=== PATIENT | male | born 1930 | race Caucasian/White ===

== ENCOUNTER → 2016-09-05 | Outpatient (CLI) | payer MEDICARE, BC ==
[~2016-09-05] MED LIST: ARICEPT PO; CHLORTHALIDONE25 MG PO; DILTIAZEM ER360 M1 PO; DILTIAZEM HCL120 MG PO; FLOMAX0.4 M1 PO; GLUCOSAMINE &1 EAC1 PO; LISINOPRIL PO; LISINOPRIL20 MG PO; MULTIVITAMINS1 EAC3 PO; PATIENT'S PHARMACY
[2016-09-05 12:32] LABS: HEMATOCRIT 40.4 % (38.0-50.0); HEMOGLOBIN 13.8 gm/dL (13.0-16.0); MEAN CELL VOLUME 101.1 FL (83-96); MEAN CORPUSCULAR HEMOGLOBIN 34.5 PG (28-34); MEAN CORPUSCULAR HGB CONC 34.2 g/dL (30-36); RED CELL DISTRIBUTION WIDTH 12.9 % (11.0-15.5); WHITE BLOOD COUNT 9.7 X10e3 (4.0-10.5)
[2016-09-05 13:24] LABS: CALCIUM SERUM 9.4 mg/dL (8.4-10.2); GLOM FILT RATE Estimated 67.9 mL/min (>60); POTASSIUM 4.8 mmol/L (3.5-5.1)
== END | disposition home or self-care (01) ==
LOC: CLAB 11:45
PROVIDERS: Internal Medicine Nephrology
DX: I12.9 Hypertensive chronic kidney disease with stage 1 through stage 4 chronic kidney disease, or unspecified chronic kidney disease (principal); N18.3 Chronic kidney disease, stage 3 (moderate)
CPT/HCPCS: 36415; 80048; 85027

== ENCOUNTER → 2016-09-13 | Outpatient (CLI) | payer MEDICARE, BC ==
[2016-09-13 11:38] LABS: BUN/CREATININE RATIO 11.81; CALCIUM SERUM 9.5 mg/dL (8.4-10.2); CREATININE SERUM 1.1 mg/dL (0.6-1.4); GLOM FILT RATE Estimated 60.5 mL/min (>60); POTASSIUM 4.4 mmol/L (3.5-5.1)
== END | disposition home or self-care (01) ==
LOC: CLAB 09:51
PROVIDERS: Internal Medicine
DX: E87.1 Hypo-osmolality and hyponatremia (principal)
CPT/HCPCS: 36415; 80048

== ENCOUNTER 2016-10-13 16:34 | Emergency (ER) | payer MEDICARE, BC ==
--- NOTE | ~2016-10-13 | EKG ---
PATIENT: ABILIO NYE UNIT #: [id number] Ventricular Rate: 96 BPM Atrial Rate: 96 BPM P-R Interval: 184 ms QRS Duration: 116 ms Q-T Interval: 374 ms QTC Calculation(Bezet): 472 ms P Orinda: -13 degrees Calculated R Orinda: -57 degrees Calculated T Orinda: -12 degrees Diagnosis Line: Sinus rhythm with marked sinus arrhythmia Diagnosis Line: Right bundle branch block with repolarization Diagnosis Line: abnormality Diagnosis Line: Left anterior fascicular block Diagnosis Line: Bifascicular block Diagnosis Line: Septal infarct , age undetermined Diagnosis Line: Cannot rule out Inferior infarct (masked by Diagnosis Line: fascicular block?) , age undetermined Diagnosis Line: Abnormal ECG Diagnosis Line: Diagnosis Line: Confirmed by SCARLETT GALVEZ MD ([id number]) on 10/14/2016 Diagnosis Line: 8:03:43 PM INTERPRETING MD: LENNY VÁSQUEZ
--- NOTE | ~2016-10-13 | CR72 ---
[facility] A Service of [facility] & [facility] RADIOLOGY TEXT RESULTS PATIENT: REV ABILIO NYE LOCATION: [facility] : 30 UNIT #: [id number] AGE: [address]: Kindra Tejeda MD SEX: M ORDER DR: [id number] [facility] [address] [facility]. [place], [place] [address] [id number] E MR#: [id number] Acc #: [id number] NAME: ABILIO NYE : 1930 SEX: M STUDY DATE/TIME: 10/13/2016 17:32 UNIT: [facility] ROOM: STUDY DESCRIPTION: CR Chest Single View Portable Attending Physician: Kindra Tejeda M.D. Ordering Physician: Kindra Tejeda M.D. Primary Care Physician: Jorge L Nguyen III, M.D. MEDICAL IMAGING REPORT This report is preliminary unless electronic signature is present EXAM Portable chest. HISTORY Weakness and dizzy for 2 days. FINDINGS The cardiac size and pulmonary vascularity are normal. No airspace infiltrates or effusions. IMPRESSION No acute findings. No active disease. Dictated by... Rodrigo Myers M.D. THIS IS AN ELECTRONICALLY VERIFIED REPORT Rodrigo Myers M.D. at 10/14/2016 11:29 PM JAVIER/tianna TD: 10/14/2016 00:51 JOB #: [id number] MEDICAL IMAGING REPORT Page 1 of 1 COPY
[~2016-10-13 16:34] MED LIST changes: -CHLORTHALIDONE25 MG PO; -DILTIAZEM ER360 M1 PO; -GLUCOSAMINE &1 EAC1 PO; -LISINOPRIL PO; -MULTIVITAMINS1 EAC3 PO; -PATIENT'S PHARMACY
[2016-10-13 17:26] LABS: POC - CKMB <1.0 ng/mL (0.0-7.9); POC - TROPONIN <0.05 ng/mL (<=0.05)
[2016-10-13 17:28] LABS: BASOPHIL% 0.2 % (0-2.5); HEMATOCRIT 38.4 % (38.0-50.0); HEMOGLOBIN 13.1 gm/dL (13.0-16.0); LYMPHOCYTE# 0.2 X10e3 (1.0-3.5); LYMPHOCYTE% 2.3 % (17.0-45.0); MEAN CELL VOLUME 101.5 FL (83-96); MEAN CORPUSCULAR HEMOGLOBIN 34.7 PG (28-34); MEAN CORPUSCULAR HGB CONC 34.2 g/dL (30-36); MEAN PLATELET VOLUME 6.9 FL (6.5-11.5); MONOCYTE# 0.5 X10e3 (0-1.0); MONOCYTE% 4.5 % (3.0-12.0); NEUTROPHIL# 9.9 X10e3 (1.5-7.1); PLATELET COUNT 221 X10e3 (140-420); RED BLOOD COUNT 3.79 X10e (3.90-5.60); RED CELL DISTRIBUTION WIDTH 12.7 % (11.0-15.5); WHITE BLOOD COUNT 10.6 X10e3 (4.0-10.5)
[2016-10-13 17:33] LABS: DIFF IND NO
[2016-10-13 17:54] LABS: ALBUMIN SERUM 3.8 g/dL (3.5-5.0); BILIRUBIN, DIRECT 0.2 mg/dL (0.0-0.2); BILIRUBIN,INDIRECT 0.5 mg/dL (0.0-0.9); BILIRUBIN,TOTAL 0.7 mg/dL (0.2-2.0); CALCIUM SERUM 8.5 mg/dL (8.4-10.2); CREATININE SERUM 1.2 mg/dL (0.6-1.4); GLOM FILT RATE Estimated 54.4 mL/min (>60); PARTIAL THROMBOPLASTIN TIME 23.9 SECONDS (23.5-31.3); PROTEIN TOTAL SERUM 6.4 g/dL (6.0-8.3); PROTHROMBIN TIME (PATIENT) 10.6 SECONDS (9.6-11.5)
[2016-10-13 17:54] LABS: INFLUENZA A NEG (NEG); INFLUENZA B NEG (NEG)
[2016-10-13 18:30] LABS: URINE SOURCE CLEAN CATCH
[2016-10-13 18:45] LABS: URINE APPEARANCE CLEAR; URINE BILIRUBIN NEG (NEG); URINE BLOOD NEG (NEG); URINE COLOR DK YELLOW; URINE GLUCOSE NEG (NEG); URINE KETONE NEG (NEG); URINE LEUKOCYTE ESTERASE NEG (NEG); URINE NITRATE NEG (NEG); URINE PH 6.5 (5-8); URINE PROTEIN NEG (NEG); URINE SPECIFIC GRAVITY 1.021 (1.003-1.035)
[2016-10-13 18:48] LABS: CULTURE INDICATED? NO
[2016-10-13 19:01] LABS: POC - CKMB <1.0 ng/mL (0.0-7.9); POC - TROPONIN <0.05 ng/mL (<=0.05)
== END 2016-10-13 19:13 | disposition home or self-care (01) ==
LOC: CED 16:34
PROVIDERS: Emergency Medicine
DX: R53.81 Other malaise (principal); R53.1 Weakness; E87.1 Hypo-osmolality and hyponatremia; F17.210 Nicotine dependence, cigarettes, uncomplicated; I10 Essential (primary) hypertension; Z98.890 Other specified postprocedural states; Z79.899 Other long term (current) drug therapy
CPT/HCPCS: 36415; 71010; 80048; 80076; 81003; 82553; 83605; 84484; 85025; 85610; 85730; 87040; 87804; 93005; 96360; 99284

== ENCOUNTER 2016-11-17 11:07 | Inpatient (IN) | payer MEDICARE, BC ==
--- NOTE | ~2016-11-17 | CT4 ---
[facility] A Service of [facility] RADIOLOGY TEXT RESULTS PATIENT: REV ABILIO NYE LOCATION: [facility] 328-01 : 30 UNIT #: [id number] AGE: [address]: Saad Hernandez MD SEX: M ORDER DR: [id number] [facility] [address] [facility]. [place], [place] [address] [id number] I MR#: [id number] Acc #: [id number] NAME: ABILIO NYE : 1930 SEX: M STUDY DATE/TIME: 11/20/2016 15:00 UNIT: [address] ROOM: [facility] STUDY DESCRIPTION: CT Abd and Pelv Wo Cont Attending Physician: Heydi Estevez M.D. Ordering Physician: Heydi Estevez M.D. Primary Care Physician: Jorge L Nguyen III, M.D. MEDICAL IMAGING REPORT This report is preliminary unless electronic signature is present EXAM CT abdomen and pelvis without IV contrast COMPARISON None INDICATIONS 86-year-old male with diarrhea for 2 days and hyponatremia. Suspected colitis. FINDINGS Axial CT imaging of the abdomen and pelvis was performed without IV contrast. Coronal and sagittal reformats were constructed. Lack of IV contrast limits evaluation of adenopathy, vasculature and viscera. This CT exam was performed with one or more of the following radiation dose reduction techniques: Automatic exposure control, adjustment of mA and/or kV according to patient size, and iterative reconstruction. Moderate-sized fat-containing umbilical hernia. Multilevel moderate degenerative facet disease of the lumbar spine. Partial ankylosis of the sacroiliac joints. 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 Small posterior disc protrusions with annular calcification at L3-L4 and L5-S1. Small hiatal hernia. No acute findings in the imaged lower chest. Oral contrast reaches the distal ileum. Cystic structure seen in the left hepatic lobe measuring up to 2.2 cm. Separate suspected cyst in the right hepatic lobe. There are calcified granulomas within the liver. Gallbladder is unremarkable. Mild fatty replacement of the pancreas. Calcified splenic granulomas. Adrenal glands are within normal limits. Benign cyst versus angiomyolipoma in the right kidney measuring up to 1.5 cm. Benign cyst versus angiomyolipoma in the left kidney measuring up to 2.7 cm. There are 3 simple cysts in the superior pole of the left kidney, largest of which measures up to 3.9 cm. Exophytic simple cyst versus angiomyolipoma in the inferior pole of the left kidney STS. [facility] A Service of [facility] RADIOLOGY TEXT RESULTS PATIENT: REV ABILIO NYE LOCATION: [facility] 328-01 : 30 UNIT #: [id number] AGE: [address]: Saad Hernandez MD SEX: M ORDER DR: measuring up to 2.8 cm. No hydronephrosis or hydroureter. No renal or ureteral calculi. Urinary bladder is unremarkable. There are central prostatic calcifications, a nonspecific finding perhaps related to remote prostatitis. There is top-normal size of the prostate gland measuring up to 5 cm, transverse. There are pelvic phleboliths. There is left-colonic and sigmoid diverticulosis without evidence of acute diverticulitis. No evidence of inflammatory change of the bowel. Appendix is normal. No free fluid or pneumoperitoneum. The abdominal aorta is normal in caliber but is diffusely calcified with calcifications extending into the bilateral iliac arteries as well as the origins of the bilateral renal arteries and the celiac and superior mesenteric arteries. No adenopathy. IMPRESSION 1. No acute findings in the abdomen, pelvis or imaged lower chest. There is extensive left colonic diverticulosis without evidence of acute diverticulitis. 2. Small hiatal hernia. 3. Benign lesions seen in the kidneys and liver as described in the body of the report. 4. Multilevel posterior disc protrusion of the lumbar spine. 5. Top-normal size of the prostate gland, which has smooth contour. 6. Moderate fat-containing umbilical hernia. Dictated by... Isaiah Silva M.D. THIS IS AN ELECTRONICALLY VERIFIED REPORT Isaiah Silva M.D. at 11/28/2016 10:49 PM KRISTA/jules TD: 11/20/2016 22:45 JOB #: [id number] MEDICAL IMAGING REPORT Page 1 of 1 COPY
--- NOTE | ~2016-11-17 | CO ---
Unit #: [id number] #: [id number] Patient: REV ABILIO NYE [id number] [address] [place], [place] [address] [id number] [place] MR#: [id number] NAME: ABILIO NYE ROOM: 328 Age: 86 Sex: M Admission Date: 11/18/2016 : 1930 Attending Physician: Saad Hernandez M.D. Primary Care Physician: Jorge L Nguyen III, M.D. Consultation Date: 11/21/2016 CONSULTATION REPORT REASON FOR CONSULTATION Hyponatremia. Thank you very much for asking me to see this patient in consultation. HISTORY OF PRESENT ILLNESS Reverend Nye is an 86-year-old gentleman, who presented to the hospital with increased weakness times several days and intermittent diarrhea at home, who was noted to have a sodium of 126 upon admission and subsequently back down all the way to 120 yesterday and back up to 122 today. Because of this, I was asked to see the patient. The patient was on chlorthalidone at home, which has been discontinued since admission here. He has also had some intermittent loose stools and diarrhea and was started on Flagyl; although, C diff is pending. He is alert, but confused. He denies any chest pain or shortness of breath, nausea or vomiting. No urinary symptoms. No significant swelling. PAST MEDICAL HISTORY History of hearing defects, history of hypertension, underlying dementia. MEDICATIONS At home included Zestril, Flomax, chlorthalidone, glucosamine, multivitamin, diltiazem 360 daily. REVIEW OF SYSTEMS As mentioned in the HPI. SOCIAL HISTORY He smokes an intermittent cigar. No alcohol. ALLERGIES No known drug allergies. FAMILY HISTORY Unable to obtain. PHYSICAL EXAMINATION VITAL SIGNS: T-max 98.2, pulse 63 to 73, blood pressure 105 to 147 over 60s to 80s. HEENT: Normocephalic and atraumatic. Pupils are equal, round, and reactive to light. Extraocular muscles are intact. Hearing appears to be decreased bilaterally. Mouth is clear. No erythema. No exudate. NECK: Supple. No adenopathy. Unit #: [id number] #: [id number] Patient: REV ABILIO NYE CARDIAC: Regular rhythm without a rub. No S3 or S4. LUNGS: Clear bilaterally. No wheezes, rhonchi, or rales. ABDOMEN: Bowel sounds positive. Nontender. Soft. No masses. No hepato-organomegaly noted. EXTREMITIES: He has no lower extremity swelling. His pulses are intact in the lower extremities. JOINTS: No joint pain or joint swelling. SKIN: No rashes. NEUROLOGIC: He is alert, but confused. Able to move all extremities. : Deferred. DIAGNOSTIC STUDIES LABORATORY RESULTS: Today shows a sodium of 122, potassium 3.6, chloride 90, bicarb is 24, BUN 6, creatinine 0.7, glucose 86, TSH was 1.6. Calcium is 8.1. Cortisol level ordered for in the morning. Urine osmolality is 162. Hemoglobin is 12.6, white count 7.6, platelets 221. UA shows specific gravity of 1.07, no protein, no RBC clumps, 5-10 WBC, no bacteria. (1) ranged from 129-130, September 128-129. IMAGING STUDIES: CT scan of the abdomen showed diverticulosis, but no diverticulitis. 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 Also had some calcification of some of his abdominal vasculature including the origin of the renal arteries. ASSESSMENT AND PLAN Hyponatremia. Apparently this patient has either euvolemic versus a hypovolemic hyponatremia. Certainly, I agree with checking a cortisol level to rule out adrenal insufficiency as the cause. He does not appear to be volume overloaded. Does not appear to be in any type of heart failure and he has no proteinuria, so again I do not think it is hypovolemia. His urine osmolality is not consistent with an SIADH picture. Certainly at his level of 162, I do not think it is an SIADH. Initially, we could contribute it to the chlorthalidone, which is a thiazide diuretics, and potentially could be volume depleted as well from diarrhea. His urine specific gravity was only 1.07. I wonder if he is drinking a lot of fluids as well if he has some component of psychogenic polydipsia. I am going to put him on fluid restriction. I am going to continue his normal saline and we will check urine sodium. Await cortisol level in the morning and we will continue to follow. Again, stay off his chlorthalidone. Dictated by... Tyler Liz/kristina TD: 11/21/2016 13:08 JOB #: [id number] Unit #: [id number] #: [id number] Patient: REV TRELL NYEALD CONSULTATION REPORT Page 1 of 1 X Hero Saeed MD CONSULTATION REPORT
--- NOTE | ~2016-11-17 | DS ---
Unit #: [id number] #: [id number] Patient: REV ABILIO NYE [id number] [address] [address] [id number] I MR#: [id number] NAME: ABILIO NYE ROOM: [facility] Age: 86 Sex: M Admission Date: 11/18/2016 : 1930 Discharge Date: 11/23/2016 Attending Physician: Saad Hernandez M.D. Primary Care Physician: Jorge L Nguyen III, M.D. DISCHARGE SUMMARY DISCHARGE DIAGNOSES 1. Hyponatremia. 2. Diarrhea. 3. Dementia. HOSPITAL COURSE The patient is an 86-year-old male who presented to [facility] secondary to feeling dizzy. In the emergency department, the patient was noted to have orthostatic hypotension. As a result, he was admitted. The patient was seen by Renal given his profound hyponatremia and its failure to improve initially after some fluid. Renal agreed that the patient was likely hypovolemic in his hyponatremia with the further exacerbating factor of 25 mg of chlorthalidone taken daily. The patient did continue on fluids, and at this time his hyponatremia is much improved with a serum value of 132. The patient's diarrhea was noted to be profuse. Initially, it was treated as a possible C. difficile colitis, but studies have returned negative at this time. The patient is to be discharged after colonoscopy today and should follow up on the results of his colonoscopy with Dr. Dykes in two weeks. DISCHARGE MEDICATIONS 1. Diltiazem ER 360 mg p.o. daily. 2. Multivitamin daily. 3. Glucosamine and chondroitin 1 tab daily. 4. Zestril 20 mg p.o. b.i.d. 5. Flomax 0.4 mg p.o. daily. FOLLOWUP As mentioned above, the patient should follow up with Dr. Dykes in two weeks. Dictated by... Saad Hernandez M.D. VISHAL/boyd TD: 11/23/2016 14:50 JOB #: [id number] Unit #: [id number] #: [id number] Patient: REV ABILIO NYE DISCHARGE SUMMARY Page 1 of 1 X Saad Hernandez MD DISCHARGE SUMMARY
--- NOTE | ~2016-11-17 | CO ---
Unit #: [id number] #: [id number] Patient: REV ABILIO NYE [id number] [address] [address] [id number] I MR#: [id number] NAME: ABILIO NYE ROOM: 328 Age: 86 Sex: M Admission Date: 11/18/2016 : 1930 Attending Physician: Saad Hernandez M.D. Primary Care Physician: Jorge L Nguyen III, M.D. Consultation Date: 11/20/2016 CONSULTATION REPORT DICTATED FOR Kiko Dykes M.D. PRIMARY CARE PHYSICIAN Jorge L Nguyen M.D. REASON FOR CONSULT Diarrhea. HISTORY OF PRESENT ILLNESS The patient is a very pleasant 86-year-old male, who is also a retired it operations specialist. The patient has past medical history of hypertension and possible dementia. The patient has presented to the emergency room with complaints of weakness and dizziness for the past few days. Initial labs in the emergency room show significant hyponatremia with sodium of 126. The patient is being evaluated for diarrhea. The patient is somewhat a poor historian, but states since admission he has been having 2 to 3 loose watery bowel movements a day. He has only had one diarrhea since last evening. There is no history of nausea, vomiting, abdominal pain, anorexia, weight loss, or overt gastrointestinal blood loss in the form of hematemesis, melena, or hematochezia. The patient denies recent antibiotic use, overseas travel or recent sick contacts. PAST MEDICAL HISTORY Hypertension, possible dementia. PAST SURGICAL HISTORY Tonsillectomy, hernia repair. SOCIAL HISTORY The patient smokes cigars a couple of times a week. Denies any alcohol or illicit drug use. FAMILY HISTORY None for colon, pancreatic cancer or liver disease. ALLERGIES No known drug allergies. HOME MEDICATIONS Include multivitamins, glucosamine, Zestril, Flomax, Cardizem and chlorthalidone. REVIEW OF SYSTEMS Unit #: [id number] #: [id number] Patient: REV ABILIO NYE A 12-point review of system performed and only pertinent positive findings are described in HPI. The rest of review of system is negative. PHYSICAL EXAMINATION GENERAL: The patient is awake, alert, and oriented, in no acute distress. VITAL SIGNS: Stable with temperature of 98, blood pressure 142/78, heart rate 68, respirations 18. HEENT: There is no pallor, no scleral icterus, no lymphadenopathy. No peripheral edema. CARDIOVASCULAR: Regular rate and rhythm. LUNGS: Clear to auscultation bilaterally. ABDOMEN: Soft, nontender. Liver and spleen not palpable. Bowel sounds are normal. DIAGNOSTIC STUDIES LABORATORY RESULTS: BMP notable for sodium 123, calcium 7.8. BUN and creatinine within normal limits. CBC on admission was also within normal limits. Stool studies are pending at this time. IMAGING STUDIES: CT of abdomen and pelvis has been ordered. Results are pending at this time. ASSESSMENT 1. Diarrhea. 2. Hyponatremia, possible syndrome of inappropriate anti-diuretic hormone secretion. PLAN The patient with new onset of diarrhea, the patient's history is somewhat unreliable. Concern here would be infectious colitis versus inflammatory bowel disease, which is unlikely. We will wait for stool studies and CT results. Depending on those results, a colonoscopy may be considered. The patient and plan of care were discussed in detail with Dr. Dykes. Further recommendations to follow. Thank you very much for asking us to see this patient. We appreciate the consult. Dictated by... MATEO George/kristina TD: 11/23/2016 07:53 JOB #: [id number] CC: Jorge L Nguyen III, M.D. CONSULTATION REPORT Page 1 of 1 X X CONSULTATION REPORT
--- NOTE | ~2016-11-17 | HP ---
Unit #: [id number] #: [id number] Patient: REV ABILIO NYE [id number] [address] [address] [id number] I MR#: [id number] NAME: ABILIO NYE ROOM: 92465 Age: 86 Sex: M Admission Date: 11/17/2016 : 1930 Attending Physician: Chadwick Villalobos M.D. Primary Care Physician: Jorge L Nguyen III, M.D. HISTORY AND PHYSICAL CHIEF COMPLAINT Weak and dizzy. HISTORY OF PRESENT ILLNESS The patient is an 86-year-old male with a history of hypertension. The patient was brought to the emergency room complaining of weakness and dizziness for the last 2 days. The patient denies any shortness of breath, fever or chills. The patient also complained of diarrhea with two to three bowel movements during the daytime. The patient was found to have hyponatremia with a sodium of 126 and is being admitted for the above reasons. The patient denies any chest pain. Denies any shortness of breath, nausea or vomiting. PAST MEDICAL HISTORY 1. History of hypertension. 2. Psychiatric history. PAST SURGICAL HISTORY 1. History of tonsillectomy. 2. Hernia repair. SOCIAL HISTORY The patient smokes cigars about two times per week. Denies any illicit drug abuse. Drinks alcohol occasionally. FAMILY HISTORY Reviewed and none. ALLERGIES No known drug allergies. HOME MEDICATIONS 1. Multivitamins. 2. Glucosamine. 3. Zestril. 4. Flomax. 5. Cardizem. 6. Chlorthalidone. REVIEW OF SYSTEMS Fourteen point review of systems performed and only pertinent positive findings are described above. The remaining are negative. PHYSICAL EXAMINATION Unit #: [id number] #: [id number] Patient: REV ABILIO NYE GENERAL: The patient is lying on the bed, not in acute distress. VITALS: Temperature 98.2, pulse 99, respiratory rate 16, blood pressure 128/76, saturating 97% on room air. HEENT: Head atraumatic, normocephalic. Pupils equal, round and reactive to light and accommodation. Extraocular movements are intact. NECK: Supple. LUNGS: Clear to auscultation. HEART: Regular rate and rhythm. ABDOMEN: Soft. Positive bowel sounds. EXTREMITIES: No cyanosis or clubbing. NEUROLOGIC: Alert, awake and oriented. No gross focal motor deficits. DIAGNOSTIC STUDIES IMAGING: Chest x-ray shows stable mild cardiomegaly and tortuous aorta. The lungs are clear. There are no effusions. LABORATORY: White blood cell count 9, hemoglobin 13.9, hematocrit 41.4, platelets 244, glucose 86, troponin less than 0.05, sodium 126, potassium 3.8, chloride 91, bicarb 25, glucose 94, BUN 11, creatinine 1, AST 26, ALT 22. Urinalysis shows negative leukocyte esterase, negative nitrites. CARDIOVASCULAR: EKG shows sinus rhythm with first degree AV block and right bundle branch block and left anterior fascicular block. ASSESSMENT 1. Dizziness. 2. Hyponatremia. 3. Hypertension. PLAN Admit the patient to observation. Continue with IV fluids. Hold the chlorthalidone. Check the stool for culture. Further recommendations will follow as more lab results are available. Dictated by Tyler Vásquez TD: 11/17/2016 14:53 JOB #: [id number] HISTORY AND PHYSICAL Page 1 of 1 X CHADWICK VILLALOBOS MD X HISTORY AND PHYSICAL
--- NOTE | ~2016-11-17 | CR72 ---
[facility] A Service of [facility] & [facility] RADIOLOGY TEXT RESULTS PATIENT: REV ABILIO NYE LOCATION: [facility] [address]-85 : 30 UNIT #: [id number] AGE: [address]: CHADWICK CONTRERAS MD SEX: M ORDER DR: [id number] [facility] [address] [facility]. [place], [place] [address] [id number] MR#: [id number] #: [id number] NAME: ABILIO NYE : 1930 SEX: M STUDY DATE/TIME: 11/17/2016 11:51 UNIT: [facility] ROOM: STUDY DESCRIPTION: CR Chest Single View Portable Attending Physician: Xander Rivas M.D. Ordering Physician: Xander Rivas M.D. Primary Care Physician: Jorge L Nguyen III, M.D. MEDICAL IMAGING REPORT This report is preliminary unless electronic signature is present EXAM Chest portable 11/17/2016 1151 hours HISTORY 86-year-old man with shortness of air and dizziness for 4 days. COMPARISON 10/13/2016 FINDINGS Portable upright chest demonstrates stable mild cardiomegaly and tortuous aorta. The pulmonary vascularity is normal. The lungs are clear and there are no effusions. IMPRESSION Stable mild cardiomegaly and tortuous aorta. The lungs are clear and there are no effusions. Dictated by... Lorena Yi M.D. THIS IS AN ELECTRONICALLY VERIFIED REPORT Lorena Yi M.D. at 11/17/2016 2:31 PM RACHID/jose TD: 11/17/2016 12:58 JOB #: [id number] MEDICAL IMAGING REPORT Page 1 of 1 COPY
--- NOTE | ~2016-11-17 | EKG ---
PATIENT: ABILIO NYE UNIT #: [id number] Ventricular Rate: 76 BPM Atrial Rate: 76 BPM P-R Interval: 244 ms QRS Duration: 124 ms Q-T Interval: 394 ms QTC Calculation(Bezet): 443 ms P Gurley: -2 degrees Calculated R Gurley: -50 degrees Calculated T Gurley: -14 degrees Diagnosis Line: Sinus rhythm with 1st degree A-V block with Diagnosis Line: Blocked Premature atrial complexes Diagnosis Line: Right bundle branch block Diagnosis Line: Left anterior fascicular block Diagnosis Line: Bifascicular block Diagnosis Line: Abnormal ECG Diagnosis Line: When compared with ECG of 13-OCT-2016 17:21, Diagnosis Line: Premature atrial complexes are now Present Diagnosis Line: MS interval has increased Diagnosis Line: Criteria for Septal infarct are no longer Present Diagnosis Line: Confirmed by KAY GAMEZ MD ([id number]) on Diagnosis Line: 11/18/2016 4:01:19 PM INTERPRETING MD: BRYON
--- NOTE | ~2016-11-17 | OR ---
Unit #: [id number] #: [id number] Patient: REV ABILIO NYE [id number] [address] [address] [id number] MR#: [id number] NAME: ABILIO NYE ROOM: [facility] Date of Procedure: 11/23/2016 Admission Date: 11/18/2016 Surgeon: Kiko Dykes M.D. : 1930 Attending Physician: Saad Hernandez M.D. Primary Care Physician: Jorge L Nguyen III, M.D. OPERATIVE REPORT ATTENDING PHYSICIAN Dr. Saad Hernandez. PRIMARY CARE PHYSICIAN Jorge L Nguyen M.D. PREOPERATIVE DIAGNOSIS Diarrhea. PROCEDURES PERFORMED Colonoscopy and biopsies. POSTOPERATIVE DIAGNOSES 1. The patient had small internal hemorrhoids. 2. 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 3. A diminutive polyp in the proximal ascending colon removed using cold biopsy forceps. 4. Rest of the examination up to cecum and terminal ileum was normal. Multiple random colonic biopsies were obtained from throughout the colon to rule out microscopic or collagenous colitis. 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 He will be followed up in the office in 6 to 8 weeks' time. He will have to call our office and make a followup appointment. Follow up the results of polyp histology and random biopsies taken today. SEDATION USED MAC. DESCRIPTION OF PROCEDURE Following detailed explanation of potential risks and complications of a colonoscopy, namely perforation, bleeding, and complication related to sedation, the patient was brought to GI lab and laid in the left lateral decubitus position. A digital rectal examination was performed, which was normal. Lubricated tip of the Olympus video colonoscope was inserted through the anus and advanced under direct vision. The scope was advanced past rectosigmoid into descending colon. Multiple medium-sized diverticula were noted in this area. The scope tip was then navigated all the way up to cecum with visualization of ileocecal valve and the appendiceal orifice. Preparation was excellent with good visualization Unit #: [id number] #: [id number] Patient: REV ABILIO NYE and photodocumentation was obtained. Last few inches of the terminal ileum were also visualized after intubation of the ileocecal valve and appeared normal. Successive segments of the colonic mucosa were examined upon withdrawal. The patient was noted to have a single diminutive polyp in the proximal ascending colon. This was removed using cold biopsy forceps. It was sent for histology. No additional polyps were noted. The patient did have evidence of mild watson-diverticulosis. Multiple random colonic biopsies were obtained from throughout the colon to rule out microscopic or collagenous colitis. Small internal hemorrhoids were also noted at the anal verge seen at the time of withdrawal. The scope was then withdrawn and the patient returned to the recovery area. He tolerated the procedure without any postprocedure complications. Dictated by... Tyler Gallardo/kristina TD: 11/23/2016 15:37 JOB #: [id number] OPERATIVE REPORT Page 1 of 1 X Kiko Dykes MD X PROCEDURE OPERATIVE NOTE
[2016-11-17 11:46] LABS: BASOPHIL% 0.3 % (0-2.5); DIFF IND NO; EOSINOPHIL# 0.1 X10e3 (0-0.7); EOSINOPHIL% 1.6 % (0.0-7.0); HEMATOCRIT 41.4 % (38.0-50.0); HEMOGLOBIN 13.9 gm/dL (13.0-16.0); LYMPHOCYTE# 1.2 X10e3 (1.0-3.5); LYMPHOCYTE% 13.5 % (17.0-45.0); MEAN CORPUSCULAR HEMOGLOBIN 34.6 PG (28-34); MEAN CORPUSCULAR HGB CONC 33.6 g/dL (30-36); MEAN PLATELET VOLUME 7.1 FL (6.5-11.5); MONOCYTE% 11.1 % (3.0-12.0); NEUTROPHIL# 6.6 X10e3 (1.5-7.1); NEUTROPHIL% 73.5 % (40-75); PLATELET COUNT 244 X10e3 (140-420); RED BLOOD COUNT 4.02 X10e (3.90-5.60); RED CELL DISTRIBUTION WIDTH 14.5 % (11.0-15.5)
[2016-11-17 11:57] LABS: POC - CKMB 1.9 ng/mL (0.0-7.9); POC - TROPONIN <0.05 ng/mL (<=0.05)
[2016-11-17 12:09] LABS: ALBUMIN SERUM 3.8 g/dL (3.5-5.0); BILIRUBIN, DIRECT 0.1 mg/dL (0.0-0.2); BILIRUBIN,INDIRECT 0.7 mg/dL (0.0-0.9); BILIRUBIN,TOTAL 0.8 mg/dL (0.2-2.0); GLOM FILT RATE Estimated 67.9 mL/min (>60); POTASSIUM 3.8 mmol/L (3.5-5.1); PROTEIN TOTAL SERUM 6.7 g/dL (6.0-8.3)
[2016-11-17 13:19] LABS: URINE SOURCE CLEAN CATCH
[2016-11-17 13:27] LABS: URINE APPEARANCE CLEAR; URINE BILIRUBIN NEG (NEG); URINE BLOOD NEG (NEG); URINE COLOR YELLOW; URINE GLUCOSE NEG (NEG); URINE KETONE NEG (NEG); URINE LEUKOCYTE ESTERASE NEG (NEG); URINE NITRATE NEG (NEG); URINE PROTEIN NEG (NEG); URINE SPECIFIC GRAVITY 1.007 (1.003-1.035); URINE UROBILINOGEN 0.2 MG/DL (NEG)
[2016-11-17 13:48] LABS: CULTURE INDICATED? NO
[2016-11-17] MEDS ORDERED: GLUCOSAMINE &1 EAC1 PO (13:57)
[2016-11-17] MEDS ORDERED: MULTIVITAMINS1 EAC3 PO (13:57)
[2016-11-17] MEDS ORDERED: LISINOPRIL PO (13:57)
[2016-11-17] MEDS ORDERED: FLOMAX0.4 M1 PO (13:57)
[2016-11-17] MEDS ORDERED: PATIENT'S PHARMACY (13:57)
[2016-11-17] MEDS ORDERED: CHLORTHALIDONE25 MG PO (13:58)
[2016-11-17] MEDS ORDERED: DILTIAZEM ER360 M1 PO (13:58)
[2016-11-18 05:26] LABS: BASOPHIL% 0.3 % (0-2.5); EOSINOPHIL# 0.2 X10e3 (0-0.7); HEMATOCRIT 35.8 % (38.0-50.0); LYMPHOCYTE# 1.4 X10e3 (1.0-3.5); LYMPHOCYTE% 18.4 % (17.0-45.0); MEAN CELL VOLUME 103.4 FL (83-96); MEAN CORPUSCULAR HEMOGLOBIN 34.5 PG (28-34); MEAN CORPUSCULAR HGB CONC 33.4 g/dL (30-36); MEAN PLATELET VOLUME 7.4 FL (6.5-11.5); MONOCYTE% 12.6 % (3.0-12.0); NEUTROPHIL# 5.2 X10e3 (1.5-7.1); NEUTROPHIL% 66.7 % (40-75); PLATELET COUNT 209 X10e3 (140-420); RED BLOOD COUNT 3.46 X10e (3.90-5.60); RED CELL DISTRIBUTION WIDTH 14.1 % (11.0-15.5); WHITE BLOOD COUNT 7.9 X10e3 (4.0-10.5)
[2016-11-18 05:29] LABS: DIFF IND NO
[2016-11-18 06:29] LABS: CALCIUM SERUM 8.1 mg/dL (8.4-10.2); GLOM FILT RATE Estimated 67.9 mL/min (>60); POTASSIUM 3.7 mmol/L (3.5-5.1)
[2016-11-19 06:53] LABS: CALCIUM SERUM 7.9 mg/dL (8.4-10.2); GLOM FILT RATE Estimated 67.9 mL/min (>60); POTASSIUM 3.8 mmol/L (3.5-5.1)
[2016-11-20 14:37] LABS: CALCIUM SERUM 8.5 mg/dL (8.4-10.2); CREATININE SERUM 0.7 mg/dL (0.6-1.4); GLOM FILT RATE Estimated 85.5 mL/min (>60); POTASSIUM 3.7 mmol/L (3.5-5.1)
[2016-11-21 06:58] LABS: HEMATOCRIT 36.4 % (38.0-50.0); HEMOGLOBIN 12.6 gm/dL (13.0-16.0); MEAN CELL VOLUME 100.9 FL (83-96); MEAN CORPUSCULAR HGB CONC 34.7 g/dL (30-36); MEAN PLATELET VOLUME 7.3 FL (6.5-11.5); RED BLOOD COUNT 3.61 X10e (3.90-5.60); WHITE BLOOD COUNT 7.6 X10e3 (4.0-10.5)
[2016-11-21 07:15] LABS: PARTIAL THROMBOPLASTIN TIME 26.3 SECONDS (23.5-31.3); PROTHROMBIN TIME (PATIENT) 10.9 SECONDS (10.0-11.7)
[2016-11-21 07:57] LABS: BUN/CREATININE RATIO 8.57; CALCIUM SERUM 8.1 mg/dL (8.4-10.2); CREATININE SERUM 0.7 mg/dL (0.6-1.4); GLOM FILT RATE Estimated 85.5 mL/min (>60); POTASSIUM 3.6 mmol/L (3.5-5.1)
[2016-11-21 10:46] LABS: THYROID STIMULATING HORMONE 1.6 uIU/ml (0.34-5.60)
[2016-11-21 10:53] LABS: FREE THYROXIN (T4) 0.8 ng/dL (0.58-1.64)
[2016-11-21 18:09] LABS: BUN/CREATININE RATIO 8.57; CALCIUM SERUM 8.2 mg/dL (8.4-10.2); CREATININE SERUM 0.7 mg/dL (0.6-1.4); GLOM FILT RATE Estimated 85.5 mL/min (>60); POTASSIUM 4.2 mmol/L (3.5-5.1)
[2016-11-22 05:39] LABS: HEMOGLOBIN 12.5 gm/dL (13.0-16.0); MEAN CELL VOLUME 101.1 FL (83-96); MEAN CORPUSCULAR HEMOGLOBIN 35.1 PG (28-34); MEAN CORPUSCULAR HGB CONC 34.7 g/dL (30-36); MEAN PLATELET VOLUME 7.6 FL (6.5-11.5); RED BLOOD COUNT 3.56 X10e (3.90-5.60); RED CELL DISTRIBUTION WIDTH 14.2 % (11.0-15.5); WHITE BLOOD COUNT 7.6 X10e3 (4.0-10.5)
[2016-11-22 07:00] LABS: BUN/CREATININE RATIO 6.25; CALCIUM SERUM 8.3 mg/dL (8.4-10.2); CREATININE SERUM 0.8 mg/dL (0.6-1.4); GLOM FILT RATE Estimated 80.9 mL/min (>60); MAGNESIUM 1.5 mg/dL (1.6-3.0); PHOSPHOROUS 2.2 mg/dL (2.5-4.6); URIC ACID 3.9 mg/dL (2.6-7.2)
[2016-11-23 06:27] LABS: CALCIUM SERUM 8.3 mg/dL (8.4-10.2); CARBON DIOXIDE 24 mmol/L (22-31); CHLORIDE 101 mmol/L (100-111); CREATININE SERUM 0.8 mg/dL (0.6-1.4); GLOM FILT RATE Estimated 80.9 mL/min (>60); GLUCOSE FASTING 91 mg/dL (70-110); MAGNESIUM 1.7 mg/dL (1.6-3.0); PHOSPHOROUS 2.7 mg/dL (2.5-4.6); SODIUM 132 mmol/L (135-145)
[2016-11-23 06:36] LABS: BLOOD UREA NITROGEN <5 mg/dL (9-23); BUN/CREATININE RATIO 6.25
== END 2016-11-23 17:42 | DRG 641 ==
LOC: CED 11:07 → CEDOF 13:15 → CED 13:15 → CEDOF 13:36 → C3A PCU 15:12 → CEDOF 15:12 → C3A PCU 11-18 06:40 → CED 11-18 13:33 → CEDOF 11-18 13:33 → C3A PCU 11-21 07:18
PROVIDERS: Emergency Medicine; Internal Medicine; Internal Medicine Gastroenterology; Internal Medicine Nephrology
PROC: 0DBK8ZX Excision of Ascending Colon, Via Natural or Artificial Opening Endoscopic, Diagnostic (ICD-10-PCS; principal; 2016-11-23 13:30)
PROC: 0DBE8ZX Excision of Large Intestine, Via Natural or Artificial Opening Endoscopic, Diagnostic (ICD-10-PCS; 2016-11-23 13:30)
DX: E87.1 Hypo-osmolality and hyponatremia (principal); E86.0 Dehydration; F03.90 Unspecified dementia, unspecified severity, without behavioral disturbance, psychotic disturbance, mood disturbance, and anxiety; I95.1 Orthostatic hypotension; I10 Essential (primary) hypertension; F17.290 Nicotine dependence, other tobacco product, uncomplicated; R42 Dizziness and giddiness; K64.8 Other hemorrhoids; K57.30 Diverticulosis of large intestine without perforation or abscess without bleeding; D12.2 Benign neoplasm of ascending colon
CPT/HCPCS: 36415; 71010; 74176; 80048; 80076; 81003; 82274; 82533; 82553; 82607; 82746; 82947; 83735; 83930; 83935; 84100; 84300; 84439; 84443; 84484; 84550; 85025; 85027; 85610; 85730; 87493; 88305; 93005; 97116; 97161; 97165; 97530; 97535; 99285; G8978-GP; G8979-GP; G8987-GO; G8988-GO; J3475